=== PATIENT | female | born 2000 | race Caucasian/White ===

== ENCOUNTER 2022-10-22 13:09 | Emergency (ER) | payer MEDICAID ==
[~2022-10-22] VITALS: Ht 154.9 cm; Wt 111.0 kg
[2022-10-22 13:12] VITALS: BP 107/65
== END 2022-10-22 15:51 | disposition left against medical advice (07) ==
LOC: ER 13:13
DX: R07.89 Other chest pain (principal); R06.02 Shortness of breath; I10 Essential (primary) hypertension
CPT/HCPCS: 93005; 99283